=== PATIENT | female | born 1960 | race Two or more races ===

== ENCOUNTER 2024-06-17 14:11 | Emergency (ER) | payer MEDICARE, SELFPAY ==
[2024-06-17 14:20] VITALS: BP 92/64; PULSE 83; RESP 24; TEMP 36.3; O2SAT 97; BMI 36.0
--- NOTE | 2024-06-17 14:46 | XR_ITS ---
Examination: AP chest single view TECHNIQUE: AP portable sitting chest single view Exam date and time: June 17, 2024 1355 hours Comparison May 17, 2018 INDICATIONS: Chest pain radiating to the left side today FINDINGS: Mild elevation left hemidiaphragm. Normal heart size. No pneumonia or pulmonary edema. Moderate osteopenia IMPRESSION: No pneumonia or pulmonary edema
--- NOTE | 2024-06-17 14:46 | EKG_ITS ---
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
--- NOTE | 2024-06-17 14:46 | PD.EDRME ---
Rapid Medical Screening Exam RME Arrival date/time: 06/17/24 14:11 Chief Complaint: Weakness Vital signs: Vital Signs Temperature 97.4 F 06/17/24 14:20 Pulse Rate 83 06/17/24 14:20 Respiratory Rate 24 H 06/17/24 14:20 Blood Pressure 92/64 06/17/24 14:20 Pulse Oximetry (%) 97 06/17/24 14:20 Oxygen Delivery Method Room Air 06/17/24 14:20 E Narrative: Dizziness, generalized weakness since this morning. Dx with strep 3 days ago, currently on antibiotics
[2024-06-17 15:14] LABS: Basophils % (Auto) 1 % (0-2.5); Eosinophils % (Auto) 0 % (0-10); Hematocrit 45.6 % (36.0-46.0); Hemoglobin 16.1 g/dL (12.0-16.0); Immature Granulocytes % (Auto) 0 % (0-0); Immature Granulocytes Auto 0.02 Thou/mm3 (0.00-0.00); Lymphocytes # (Auto) 1.3 Thou/mm3 (1.0-4.8); Lymphocytes % (Auto) 20 % (10-50); Mean Corpuscular HGB Conc 35.3 g/dl (31.0-37.0); Mean Corpuscular Hemoglobin 29.8 pg (25.0-35.0); Mean Corpuscular Volume 84 fL (80-100); Monocytes # (Auto) 0.7 Thou/mm3 (0.0-0.8); Monocytes % (Auto) 11 % (0-12); Neutrophils # (Auto) 4.3 Thou/mm3 (1.8-7.7); Neutrophils % (Auto) 69 % (37-80); Nucleated Red Blood Cell % 0 /100 WBC (0); Platelet Count 185 Thou/mm3 (140-440); RDW Standard Deviation 41.6 fL (36.4-46.3); White Blood Count 6.3 Thou/mm3 (3.6-11.0)
[2024-06-17 15:38] LABS: Alanine Aminotransferase 82 U/L (10-49); Albumin, Serum 4.1 gm/dL (3.4-4.8); Albumin/Globulin Ratio 1.4 (1.2-2.2); Alkaline Phosphatase 130 U/L (46-116); Anion Gap 9 (7-16); Aspartate Amino Transferase 73 U/L (0-34); BUN/Creatinine Ratio 15 Ratio (12-20); Bilirubin,Total 0.9 mg/dL (0.3-1.2); Blood Urea Nitrogen 24 mg/dL (9-23); Calcium 9.1 mg/dL (8.3-10.6); Calcium (Corrected) 9.1 mg/dL (8.5-10.1); Carbon Dioxide 26.1 mMol/L (20.0-31.0); Chloride 94 mMol/L (98-107); Creatinine (Component) 1.6 mg/dL (0.6-1.3); Estimated Creatinine Clearance 39.2 mL/min (>60); Glucose 332 mg/dL (74-106); Osmolality,Calculated 275 (275-295); Potassium 4.2 mMol/L (3.4-5.1); Sodium 129 mMol/L (136-145); Total Protein 7.1 gm/dL (5.7-8.2); Troponin I < 0.020 ng/mL (0.0-0.045); eGFR 36 See Note
[2024-06-17] MEDS: OSELTAMIVIR 75 MG CAPSULE PO (20:41)
[2024-06-17] MEDS: SODIUM CHLORIDE 0.9% 1000 ML 1,000 ML 999 ML IV (20:49)
[2024-06-17] MEDS: ONDANSETRON INJ 2 MG/ML INJ 2 ML 4 MG IV (20:50)
[2024-06-17 21:01] VITALS: BP 94/54; PULSE 74; RESP 19; TEMP 36.6; O2SAT 95
[2024-06-17] MEDS: MethylPREDNISolone SOD SUCC 62.5 MG/ML 2ML VIAL 125 MG IVP (21:53)
--- NOTE | 2024-06-17 21:53 | PD.EDWEAK ---
ED Weakness RME/HPI General Chief complaint: Weakness Stated complaint: WEAKENSS CAN'T WALK ; STREP THROAT THURS. W/ ABX Time Seen by Provider: 06/17/24 19:12 Arrival date/time: 06/17/24 14:11 RME / HPI RME / HPI Narrative: Dizziness, generalized weakness since this morning. Dx with strep 3 days ago, currently on antibiotics This section includes all my notes and documentations, including HPI, PE, and ED course. Fredrick Bravo MD HPI: 63-year-old female here with a few day history of worsening cough and fever and chills and bodyaches and malaise. With nausea and vomiting and minimal oral intake. Has been taking amoxicillin for strep throat for the past few days. No other complaints. ROS: All negative except as documented in HPI. Physical Exam: General: Alert and oriented. Appearance of severe malaise noted. Eyes: Conjunctivae and lids clear. ENT: No nasal congestion. Pharynx erythematous. TM normal bilaterally. Neck: Supple. Heart: RRR. Lungs: No respiratory distress. Good air movement with rales. Abdomen: Soft and nontender. Normal bowel sounds. No distension. No rebound or guarding. Back: No CVA tenderness. Skin: Warm and dry. Neuro: Alert and oriented X 3. I reviewed all diagnostic test results. My interpretation of the EKG is sinus rhythm with no acute ST?T changes. My interpretation of the chest x-ray is no acute findings. Blood tests unremarkable. Positive influenza. At this point, diagnoses include influenza. Treatment here included IV fluid and Zofran and Solu-Medrol and Tamiflu. Significant improvement noted. Prescribe Tamiflu and recommended supportive care. Based on my best medical judgment, made decision no further evaluation or treatment indicated at this time. Patient understands and agrees to the discharge instructions customized and printed, see below. Discharge instructions from Dr. Bravo: --No physical exertion for 3 days to help rest your lungs. --No smoking and no exposure to smoking or pets or dust or cold air. --Tamiflu to kill the influenza germs. Finish amoxicillin for your strep throat. --Prednisone to help decrease inflammation of the lungs. --Ibuprofen 800 mg every 8 hours today and tomorrow.? Then as needed for fever or pain. --Albuterol 2 puffs every 4-6 hours as needed for cough or shortness or breath.?? ?Increase oral fluid.? We need extra fluid when we are sick.??Zofran for nausea/vomiting. --See a private doctor next week if not better. --Seek immediate medical care with significant worsening or with any concerns. Fredrick Bravo MD Related Data Home Medications ?Medication ?Instructions ?Recorded ?Confirmed hydrochlorothiazide 25 mg tablet 25 mg PO QAM #0 tabs 04/09/16 08/18/21 losartan 100 mg tablet 100 mg PO QDAY #0 tabs 04/09/16 08/18/21 glimepiride 2 mg tablet 2 mg PO QAM 08/17/21 08/17/21 insulin glargine 100 unit/mL (3 15 unit subcut QAM 08/17/21 08/17/21 mL) subcutaneous pen (Lantus Solostar U-100 Insulin) metformin 1,000 mg tablet 1,000 mg PO BID 08/17/21 08/17/21 Previous Rx's ?Medication ?Instructions ?Recorded docusate sodium 100 mg capsule 100 mg PO BID #60 caps 08/18/21 (Colace) hydrocodone 5 mg-acetaminophen 325 1 tab PO Q6H PRN pain (scale score 08/18/21 mg tablet 7-10) #20 tabs ibuprofen 600 mg tablet 600 mg PO Q8H PRN pain (scale 08/18/21 score 4-6) #15 tabs albuterol sulfate 90 mcg/actuation 2 puff inhalation Q6H PRN 06/17/24 aerosol inhaler shortness of breath or wheezing #8.5 grams ondansetron 4 mg disintegrating 4 mg PO TID PRN nausea and 06/17/24 tablet vomiting 30 days #10 tabs oseltamivir 75 mg capsule (Tamiflu) 75 mg PO BID 5 days #10 caps 06/17/24 prednisone 50 mg tablet 50 mg PO QDAY #4 tabs 06/17/24 Allergies Allergy/AdvReac Type Severity Reaction Status Date / Time morphine Allergy Mild Anxiety Verified 06/17/24 14:16 Course Quality Measures none Orders Category Date Time Status Bedside COVID-19 Antigen Test NOW Care 06/17/24 14:46 Active Bedside Influenza A&B Antigen Test NOW Care 06/17/24 14:47 Completed EKG (ED ONLY) *Do not use* NOW Care 06/17/24 14:47 Completed Saline [Insert IV] NOW Care 06/17/24 20:24 Active CXR [XR chest 1V] Stat Exams 06/17/24 14:46 Completed EKG (ED Only) Stat Exams 06/17/24 14:46 Draft CBC Stat Lab 06/17/24 15:03 Completed CMP [Comprehensive Metabolic Panel] Stat Lab 06/17/24 15:03 Completed Troponin I Stat Lab 06/17/24 15:03 Completed UA [Urinalysis] Stat Lab 06/17/24 14:47 Ordered MethylPREDNISolone.* [SoluMEDROL Inj] Med 06/17/24 21:45 Discontinued 125 mg IVP X1 ONE Ondansetron Inj [Zofran Inj] Med 06/17/24 20:24 Discontinued 4 mg IV X1 ONE Oseltamivir [Tamiflu] Med 06/17/24 20:24 Discontinued 75 mg PO X1 ONE Sodium Chloride 0.9% 1000 ml [Ns] 1,000 ml Med 06/17/24 20:24 Discontinued IV 999 mls/hr Vital Signs Vital signs: Vital Signs Temperature 97.4 F 06/17/24 14:20 Pulse Rate 83 06/17/24 14:20 Respiratory Rate 24 H 06/17/24 14:20 Blood Pressure 92/64 06/17/24 14:20 Pulse Oximetry (%) 97 06/17/24 14:20 Oxygen Delivery Method Room Air 06/17/24 14:20 Weakness Patient data External records reviewed:: [facility] previous records Clinical information provided by:: patient Social determinants that could affect healthcare access:: none Patient has the following chronic illnesses:: HTN and DM How is presenting disease/condition affected by chronic disease/condition?: uneffected by Evaluation data The following diagnostics were reviewed and interpreted by me:: lab results, radiology exam(s) and EKG tracing(s) Lab and/or radiology exams considered but not ordered:: None Interpretation Summary: Influenza Medications / Prescriptions Medications or Prescriptions considered but not ordered:: None Medication administrations:: Medication Administration History Discontinued Medications Sodium Chloride (Ns) 1,000 mls @ 999 mls/hr IV .Q1H1M ONE Stop: 06/17/24 21:24 Last Admin: 06/17/24 20:49 Dose: 999 mls/hr Documented By: CCT Methylprednisolone Sodium Succinate (Methylprednisolone Sod Succ 62.5 Mg/Ml 2ml Vial) 125 mg IVP X1 ONE Stop: 06/17/24 21:46 Ondansetron HCl (Ondansetron Inj 2 Mg/Ml Inj 2 Ml) 4 mg IV X1 ONE; Protocol Stop: 06/17/24 20:25 Last Admin: 06/17/24 20:50 Dose: 4 mg Documented By: CCT Oseltamivir Phosphate (Oseltamivir 75 Mg Capsule) 75 mg PO X1 ONE Stop: 06/17/24 20: Last Admin: 06/17/24 20:41 Dose: 75 mg Documented By: CCT IV fluid and Zofran and Solu-Medrol and Tamiflu Consultations Consultation(s) initiated? (list below): No Diagnosis Weakness Differential Diagnosis: sepsis, dehydration and other (COVID, influenza, pneumonia, electrolyte abnormalities) Most likely diagnosis given after review of the tests above:: Influenza Admission Indicated Admission indicated?: not indicated Explain why admission is indicated or not indicated:: With significant improvement, there was no indication for admission. Admission Request Was there a request for admission?: No Disposition Plan Disposition Plan: Discharge Discharge Attestation Discharge Attestation: The patient and all family members were given an opportunity to ask questions and understood the discharge instructions. Discharge instructions specifically effects, indications for sooner follow up or return to the emergency department, and the expected course of current diagnosis. Patient condition: Stable Discharge Plan Plan Patient Disposition: HOME (Self Care) Prescriptions/Referrals Prescriptions/Med Rec: New oseltamivir [Tamiflu] 75 mg capsule 75 mg PO BID 5 Days Qty: 10 0RF prednisone 50 mg tablet 50 mg PO QDAY Qty: 4 0RF albuterol sulfate 90 mcg/actuation HFA aerosol inhaler 2 puff inhalation Q6H PRN (Reason: shortness of breath or wheezing) Qty: 8.5 0RF ondansetron 4 mg tablet,disintegrating 4 mg PO TID PRN (Reason: nausea and vomiting) 30 Days Qty: 10 0RF No Action hydrochlorothiazide 25 MG tablet 25 mg PO QAM Qty: 0 losartan 100 mg Tablet 100 mg PO QDAY Qty: 0 glimepiride 2 mg Tablet 2 mg PO QAM Rx Instructions: administer with breakfast metformin 1,000 mg Tablet 1,000 mg PO BID Lantus Solostar U-100 Insulin 100 unit/mL (3 mL) Insulin Pen 15 unit SUBCUT QAM hydrocodone-acetaminophen 5-325 mg tablet 1 tab PO Q6H MDD 4 PRN (Reason: pain (scale score 7-10)) Qty: 20 0RF docusate sodium [Colace] 100 mg capsule 100 mg PO BID Qty: 60 0RF ibuprofen 600 mg tablet 600 mg PO Q8H PRN (Reason: pain (scale score 4-6)) Qty: 15 0RF Referrals: No Primary/Family,Physician [Primary Care Provider] - In 1 week Problem List Clinical Impression: Influenza Patient/Caregiver Discharge Instructions Discharge Activity: activity as tolerated Education Materials: ED Influenza (Adult) Additional Instructions: Discharge instructions from Dr. Bravo: --No physical exertion for 3 days to help rest your lungs. --No smoking and no exposure to smoking or pets or dust or cold air. --Tamiflu to kill the influenza germs. Finish amoxicillin for your strep throat. --Prednisone to help decrease inflammation of the lungs. --Ibuprofen 800 mg every 8 hours today and tomorrow.? Then as needed for fever or pain. --Albuterol 2 puffs every 4-6 hours as needed for cough or shortness or breath.?? ?Increase oral fluid.? We need extra fluid when we are sick.??Zofran for nausea/vomiting. --See a private doctor next week if not better. --Seek immediate medical care with significant worsening or with any concerns. Print Language: Albanian Stand Alone Forms: [employer] Award Info., Patient Portal Info Letter
[2024-06-17 22:25] VITALS: BP 115/66; PULSE 68; RESP 16; TEMP 36.6; O2SAT 96
== END 2024-06-17 22:25 | disposition home or self-care (01) ==
PROVIDERS: Physician Assistant; Emergency Provider Emergency Medicine
DX: J11.1 Influenza due to unidentified influenza virus with other respiratory manifestations (principal)
CPT/HCPCS: 36415; 71045; 80053; 81001; 84484; 85025; 87400; 87811; 93005; 96361; 96374; 99284; J2405; J2919; J7030; A9270

== ENCOUNTER 2024-12-21 08:35 | Outpatient (RCR) | payer MEDICARE, SELFPAY ==
--- NOTE | 2024-12-21 09:18 | PT.OIERPT ---
PT OP Initial Eval Patient Information Visit Reasons: right knee pain Medical Diagnosis: Right Knee OA Treatment Dx #1: Right Knee Pain Start of Care: 12/21/24 Date of Onset: 3 months ago Smoking Status Smoking Status: Never smoker Initial Assessment Subjective: Pt is a 64 y/o female reports of right knee pain (09/04) ~ 3 months ago. Pt's most recent xray showed tricompartment knee OA. Pt has limitation with standing, walking, chores, self care, cooking, cleaning, stairs, squatting, and performing recreational activities. Objective: Right Knee AROM: all motions are WFL with end range pain Right Knee MMTs: grossly 4-/5 Right Hip MMTs: grossly 3+/5 SLS: NT Assessment: Pt demonstrate right knee pain consistent with knee OA leading to difficulty with ADLs. Pt will attempt physical therapy if pain persist Pt will be refer back to provider for further consultation. Short Term and Correction Goals 1) Increase right knee AROM WNL in 6 wks to be able to perform chores 2) Decrease knee pain to 2/10 in 6 wks to be able to stand more than 30 mins 3) Increase right knee MMTs grossly to 4/5 in 6 wks to be able to perform stairs and steps 4) Increase right hip MMTs grossly 4-/5 in 6 wks to be able to walk more than 30 mins 5) Indep with HEP Treatment Plan 1) Manual Therapy 2) Therapeutic Activities 3) Therapeutic Exercises 4) Modalities (ice, heat) 5) Balance Training Frequency and Duration: 2 x wk for 6 wks Certification Dates: 12/21/24 to 03/22/25 Procedure Charges OP PT Eval Mod Complex 30 minutes: Yes
== END 2024-12-25 23:59 | disposition home or self-care (01) ==
LOC: CPTX 08:35
PROVIDERS: PCP Nurse Practitioner Family; Referring Provider Nurse Practitioner Family; Visit Provider Nurse Practitioner Family
DX: M25.561 Pain in right knee (principal); R26.2 Difficulty in walking, not elsewhere classified
CPT/HCPCS: 97162

== ENCOUNTER 2025-01-04 09:30 | Outpatient (RCR) | payer MEDICARE, SELFPAY ==
--- NOTE | 2024-12-31 09:52 | PT.ODAYNRPT ---
PT Outpatient Daily Note OP Daily Note Outpatient Physical Therapy Treatment Date: 12/31/24 Visit Reasons: RT knee pain Subjective: Pt's knee pain is the same and has pain when she keeps her leg straight. Objective: Please see flow chart for list of ther ex performed Assessment: tolerate exercises with minimal pain; post ice helped with pain and soreness Plan: Continue with PT Length of Time (minutes) of Treatment: 30 Minutes Procedure Charges Therapeutic Exercise 30 minutes: Yes
--- NOTE | 2025-01-04 13:53 | PT.ODAYNRPT ---
PT Outpatient Daily Note OP Daily Note Outpatient Physical Therapy Treatment Date: 01/04/25 Visit Reasons: RT knee pain Subjective: Pt knee continues to hurt when she tries to stretch it straight. Objective: Please see flow chart for list of ther ex performed Assessment: minimal change in pain post PT session. Pt instructed to continue hamstring stretch to help alleviate knee contracture pain posterior to knee Plan: Continue with PT Length of Time (minutes) of Treatment: 30 Minutes Procedure Charges Therapeutic Exercise 30 minutes: Yes
== END 2025-01-25 23:59 | disposition home or self-care (01) ==
LOC: CPTX 09:30
PROVIDERS: PCP Nurse Practitioner Family; Referring Provider Nurse Practitioner Family; Visit Provider Nurse Practitioner Family
DX: M25.561 Pain in right knee (principal); R26.2 Difficulty in walking, not elsewhere classified
CPT/HCPCS: 97110

== ENCOUNTER 2025-03-26 13:30 | Outpatient (RCR) | payer MEDICARE, SELFPAY ==
--- NOTE | 2025-03-04 11:36 | PT.ODAYNRPT ---
PT Outpatient Daily Note OP Daily Note Outpatient Physical Therapy Treatment Date: 03/04/25 Visit Reasons: RT KNEE PAIN Subjective: Pt's knee continues to hurt. Pt has not been back to therapy due to forgetting to schedule after her last session. Pt called back to schedule but no one in PT return her calls. Objective: Please see flow chart for list of ther ex performed Assessment: pain with all exercises. ice helped with pain and soreness post PT session Plan: Continue with PT Length of Time (minutes) of Treatment: 30 Minutes Procedure Charges Therapeutic Exercise 30 minutes: Yes
--- NOTE | 2025-03-07 15:01 | PT.ODAYNRPT ---
PT Outpatient Daily Note OP Daily Note Outpatient Physical Therapy Treatment Date: 03/07/25 Visit Reasons: RT KNEE PAIN Subjective: Pt's knee is about the same and notice indentation around the knee. Pt has not mentioned concern to PCP but will on tuesday. Objective: Please see flow chart for list of ther ex performed Assessment: Pt exhibit two indentation near patella region. Pt advised to consult with PCP on tuesday to determine nature of observation. Minimal changes with knee pain during or post PT session Plan: Continue with PT Length of Time (minutes) of Treatment: 30 Minutes Procedure Charges Therapeutic Exercise 30 minutes: Yes
--- NOTE | 2025-03-13 11:38 | PTNOTE_ITS ---
PT Outpatient Daily Note OP Daily Note Outpatient Physical Therapy Treatment Date: 03/13/25 Visit Reasons: RT KNEE PAIN Subjective: Pt reports R knee pain continues to be present. Objective: Please see flow sheet for ther ex list. Assessment: Pt demonstrates poor activity tolerance due to pain response. Plan: Continue with poC. Length of Time (minutes) of Treatment: 30 Minutes INVOICING MACHINE OPERATOR Service Modifier Method I: Divide the number of min of care provided by the INVOICING MACHINE OPERATOR/SCIENTIFIC MANAGER by the total min of care provided then multiply by 100. If greater than 11 percent modifier is required. Method II: Divide the total time of care provided to patient by 10 (round to the nearest whole number) and add 1 min. to set the minimum time requirement. If treatment total was 60 min., then 10% of 6 min PT CQ modifier applied: CQ Modifier applied Procedure Charges Therapeutic Exercise 30 minutes: Yes
--- NOTE | 2025-03-26 15:56 | PT.ODS1RPT ---
PT OP Progress/Discharge Note Date of Service: 03/26/25 Progress Note/DC Note Progress Note/Discharge Note: DC Note Patient Information Visit Reasons: RT KNEE PAIN Medical Diagnosis: Right Knee OA Treatment Dx #1: Right Knee Pain Service Continue Service or Discharge: Discharge Discharge Date: 03/26/25 Status Subjective: Pt's knee continues to hurt. Pt sitll has limitation with standing, walking, chores, self care, cooking, and cleaning, At this time Pt will like to stop physical therapy since it's not helping the pain. Pt will follow up with PCP. Objective: Right Knee AROM: all motions are WNL with pain at end range Right Knee MMTs: grossly 4-/5 Right Hip MMTs: grossly 3+/5 SLS: 3 sec Assessment: Pt demonstrate functional right knee mobility and strength, however, no change in knee pain leading to difficulty with ADLs. Pt will no longer benefit from physical therapy due to plateau towards goals. Pt was not instructed on HEP since exercises increase knee pain. Pt advised to follow up with PCP for further consultation; thank you for your referrals. Plan: D/C home and follow up with PCP Procedure Charges Therapeutic Exercise 30 minutes: Yes
== END 2025-03-27 23:59 | disposition home or self-care (01) ==
LOC: CPTX 13:30
PROVIDERS: PCP Nurse Practitioner Family; Referring Provider Nurse Practitioner Family; Visit Provider Nurse Practitioner Family
DX: M25.561 Pain in right knee (principal); R26.2 Difficulty in walking, not elsewhere classified
CPT/HCPCS: 97110